=== PATIENT | female | born 1995 | race Caucasian/White ===

== ENCOUNTER 2019-05-07 02:15 | Inpatient (IN) ==
[2019-05-07] MEDS ORDERED: *HR* LORazepam 2 MG/ML VIAL IM PRN (02:23)
[2019-05-07] MEDS ORDERED: MOM Conc 10 ML UD.LIQ PO PRN (02:23)
[2019-05-07] MEDS ORDERED: *HR* LORazepam 1 MG TABLET PO PRN (02:23)
[2019-05-07] MEDS ORDERED: Acetaminophen 325 MG TABLET PO PRN (02:23)
[2019-05-07] MEDS ORDERED: haloperidoL 5 MG TABLET PO PRN (02:23)
[2019-05-07] MEDS ORDERED: Haloperidol Lactate 5 MG/ML VIAL IM PRN (02:23)
[2019-05-07] MEDS ORDERED: Mag Hydrox/Al Hydrox/Simeth 30 ML UDC PO PRN (02:23)
[2019-05-07] MEDS: traZODone 50 MG TABLET PO PRN ×2 (02:49→20:34)
[2019-05-07] MEDS: hydrOXYzine pamoate 25 MG CAPSULE PO PRN ×2 (02:49→20:34)
[2019-05-07] MEDS: Nicotine 21 MG PATCH.TD24 TD SCH (09:20)
[2019-05-08] MEDS: Nicotine 21 MG PATCH.TD24 TD SCH (08:56)
[2019-05-08] MEDS: hydrOXYzine pamoate 25 MG CAPSULE PO PRN (20:07)
[2019-05-08] MEDS: traZODone 50 MG TABLET PO PRN (20:07)
[2019-05-09] MEDS: Nicotine 21 MG PATCH.TD24 TD SCH ×2 (08:59→09:15)
[2019-05-09 09:19] VITALS: BP 133/83
== END 2019-05-09 13:25 | disposition home or self-care (01) | DRG 885 ==
LOC: 1ANU 02:15
PROVIDERS: ADMIT Psychiatry & Neurology Psychiatry; ATTEND Psychiatry & Neurology Psychiatry